=== PATIENT | female | born 1980 | race Caucasian/White ===

== ENCOUNTER 2021-05-20 12:26 | Observation (INO) ==
[2021-05-20] MEDS ORDERED: 0.9 % Sodium Chloride 1,000 ML IVC ONE (12:49)
[2021-05-20 13:44] LABS: Basophils % 0.3 %; Eosinophils % 0.1 %; Hematocrit 33.7 % (35.3-44.9); Hemoglobin 10.6 g/dL (11.5-15.4); Immature Granulocytes % 0.6 % (0-4); Lymphocytes # 2.4 K/mcL (0.6-4.6); Lymphocytes % 16.3 %; Mean Corpuscular HGB Conc 31.5 g/dL (31.6-35.5); Mean Corpuscular Hemoglobin 31.5 pg (28.0-33.3); Mean Corpuscular Volume 100.3 fL (83.0-100.0); Mean Platelet Volume 11.7 fL (9.4-12.4); Monocytes # 0.8 K/mcL (0.0-1.3); Monocytes % 5.2 %; Neutrophils # 11.6 K/mcL (1.6-8.9); Platelet Count 200 K/mcL (140-400); Red Blood Count 3.36 M/mcL (3.82-4.97); Red Cell Distribution Width 16.6 % (11.5-14.5); Segmented Neutrophils % 77.5 %
[2021-05-20 13:51] LABS: Bacteria,Urine Few per hpf (None-Few); Bilirubin,Urine Negative (Negative); Blood,Urine Trace (Negative); Budding Yeast,Urine Few per hpf (None Seen); Clarity,Urine Turbid (Clear); Color,Urine Yellow (Yellow); Glucose,Urine (UA) 200 mg/dL (Normal); Hyaline Casts,Urine Many per lpf (None Seen); Ketones,Urine Negative (Negative); Leukocyte Esterase,Urine Large (Negative); Mucus,Urine Few per lpf (None-Few); Nitrite,Urine Negative (Negative); Protein,Urine 30 mg/dL (Neg-Trace); Renal Epithelial Cells,Urine Few per hpf (None-Few); Specific Gravity,Urine 1.021 (1.010-1.025); Squamous Epithelial Cell,Urine Moderate per hpf (None-Few); Transitional Epi Cells,Urine Few per hpf (None-Few); Urobilinogen,Urine Normal (Normal); WBC,Urine TNTC per hpf (0-3)
[2021-05-20 13:53] LABS: INR 1.3
[2021-05-20 14:04] LABS: Alanine Aminotransferase 27 Units/L (7-52); Albumin 1.8 g/dL (3.5-5.7); Albumin/Globulin Ratio 0.8 (1.1-2.2); Alkaline Phosphatase 150 Units/L (34-104); Aspartate Amino Transferase 32 Units/L (13-39); BUN/Creatinine Ratio 10 (6-26); Bilirubin,Direct 0.3 mg/dL (0.0-0.2); Bilirubin,Indirect 0.4 mg/dL (0.0-1.0); Bilirubin,Total 0.7 mg/dL (0.3-1.0); Blood Urea Nitrogen 12 mg/dL (6-20); Carbon Dioxide 25 mEq/L (23-29); Chloride 104 mEq/L (98-107); Globulin 2.4 g/dL (2.4-3.5); Glucose 313 mg/dL (70-105); Lipase 6 Units/L (11-82); Osmolality,Calculated 292 (280-300); Potassium 5.4 mEq/L (3.5-5.1); Sodium 135 mEq/L (136-145); Total Protein 4.2 g/dL (6.4-8.9); Troponin I < 0.03 ng/mL (< 0.04); eGFR For African Americans > 60 (> 60); eGFR For Non-African Americans 51 (> 60)
[2021-05-20] MEDS ORDERED: Lactulose Oral Soln 20 GM/30 ML UDC PO ONE (14:28)
[2021-05-20] MEDS ORDERED: cefTRIAXone 1,000 MG in Water for inj. (sterile) 10 ML IVP ONE (16:22)
[2021-05-20] MEDS ORDERED: Naloxone 0.4 MG/ML INJ IVP PRN (16:26)
[2021-05-20] MEDS ORDERED: Albumin 25% 25gram/100mL 25 GM/100 ML IV.SOLN IVC SCH (16:45)
[2021-05-20] MEDS ORDERED: *HR* Dextrose 50 % in Water (Syg) 50 ML SYRINGE IVP PRN (17:15)
[2021-05-20] MEDS ORDERED: D5% in Water 1,000 ML IVC PRN (17:15)
[2021-05-20] MEDS ORDERED: Dextrose Gel 15 GM/37.5 ML TUBE PO PRN ×2 (17:15)
[2021-05-20] MEDS ORDERED: Acetaminophen 325 MG TABLET PO PRN (17:24)
[2021-05-20 17:25] LABS: Magnesium 1.2 mg/dL (1.6-2.6)
[2021-05-20] MEDS: Nicotine 14 MG PATCH.TD24 TD SCH (19:01)
[2021-05-20] MEDS: Ondansetron 4 MG/2 ML VIAL IVP PRN (19:10)
[2021-05-20 20:25] LABS: Amphetamine Screen,Urine Negative ng/mL (Cutoff=1000); Barbiturate Screen,Urine Negative ng/mL (Cutoff=200); Benzodiazepines Screen,Urine Negative ng/mL (Cutoff=200); Cannabinoid Screen,Urine Positive ng/mL (Cutoff = 50); Cocaine Screen,Urine Negative ng/mL (Cutoff= 300); Opiate Screen,Urine Positive ng/mL (Cutoff=300); Phencyclidine Screen,Urine Negative ng/mL (Cutoff=25)
[2021-05-20] MEDS ORDERED: Insulin LISPRO 300 UNITS/3 ML VIAL SUBQ SCH ×2 (21:00→22:49)
[2021-05-20 21:02] LABS: Hepatitis B Surface Antigen Nonreactive (Nonreactive)
[2021-05-20] MEDS: Spironolactone 25 MG TABLET PO SCH (21:17)
[2021-05-20] MEDS: Nystatin SUSP 5 ML UD.LIQ PO SCH (21:17)
[2021-05-20] MEDS: Mirtazapine 15 MG TABLET PO SCH (21:17)
[2021-05-20] MEDS: Lactulose Oral Soln 20 GM/30 ML UDC PO SCH (21:21)
[2021-05-20 21:48] LABS: Hepatitis B Core IgM Nonreactive (Nonreactive)
[2021-05-20 21:53] LABS: Hepatitis A Antibody IgM Nonreactive (Nonreactive)
[2021-05-20] MEDS: Insulin LISPRO 300 UNITS/3 ML VIAL SUBQ SCH (23:16)
[2021-05-20 23:25] LABS: Chlamydia Trachomatis DNA Ur NOT DETECTED (Not Detect)
[2021-05-21] MEDS: traZODone 50 MG TABLET PO PRN ×2 (01:52→20:18)
[2021-05-21 03:04] LABS: Basophils # 0.1 K/mcL (0.0-0.2); Basophils % 0.5 %; Eosinophils # 0.2 K/mcL (0.0-0.6); Eosinophils % 1.3 %; Hematocrit 29.1 % (35.3-44.9); Hemoglobin 9.1 g/dL (11.5-15.4); Immature Granulocytes % 0.4 % (0-4); Lymphocytes # 5.2 K/mcL (0.6-4.6); Lymphocytes % 42.9 %; Mean Corpuscular HGB Conc 31.3 g/dL (31.6-35.5); Mean Corpuscular Hemoglobin 31.3 pg (28.0-33.3); Mean Platelet Volume 11.5 fL (9.4-12.4); Monocytes # 0.9 K/mcL (0.0-1.3); Monocytes % 7.6 %; Neutrophils # 5.7 K/mcL (1.6-8.9); Platelet Count 186 K/mcL (140-400); Red Blood Count 2.91 M/mcL (3.82-4.97); Red Cell Distribution Width 16.4 % (11.5-14.5); Segmented Neutrophils % 47.3 %
[2021-05-21 03:13] LABS: INR 1.3; Prothrombin Time 14.6 Seconds (9.4-12.1)
[2021-05-21 03:26] LABS: Alanine Aminotransferase 23 Units/L (7-52); Albumin 1.6 g/dL (3.5-5.7); Albumin/Globulin Ratio 0.8 (1.1-2.2); Alkaline Phosphatase 130 Units/L (34-104); Aspartate Amino Transferase 20 Units/L (13-39); BUN/Creatinine Ratio 11 (6-26); Bilirubin,Total 0.5 mg/dL (0.3-1.0); Blood Urea Nitrogen 11 mg/dL (6-20); Calcium 6.7 mg/dL (8.6-10.3); Carbon Dioxide 21 mEq/L (23-29); Chloride 108 mEq/L (98-107); Chol/HDL Ratio 12.5 (0-4.9); Cholesterol 75 mg/dL (< 200); Glucose 104 mg/dL (70-105); HDL Cholesterol 6 mg/dL (40-59); Iron 81 mcg/dL (50-170); LDL Cholesterol,Calculated 43 mg/dL (< 100); Osmolality,Calculated 278 (280-300); Phosphorous 2.6 mg/dL (2.7-4.5); Potassium 4.4 mEq/L (3.5-5.1); Sodium 134 mEq/L (136-145); Total Protein 3.6 g/dL (6.4-8.9); Triglycerides 129 mg/dL (< 150); eGFR For African Americans > 60 (> 60); eGFR For Non-African Americans 59 (> 60)
[2021-05-21 03:42] LABS: Ferritin 239 ng/mL (10-120)
[2021-05-21 04:27] LABS: Hepatitis C Virus Antibody Reactive (Nonreactive)
[2021-05-21] MEDS: Ondansetron 4 MG/2 ML VIAL IVP PRN (04:50)
[2021-05-21] MEDS ORDERED: Insulin LISPRO 300 UNITS/3 ML VIAL SUBQ SCH ×2 (07:30→21:00)
[2021-05-21] MEDS: *HR* HYDROcodone/Acet 5/325 mg TABLET PO PRN ×2 (07:50→16:17)
[2021-05-21] MEDS: Multivit/Ca/Min/Fe/FA 1 TAB TABLET PO SCH (10:01)
[2021-05-21] MEDS: Nystatin SUSP 5 ML UD.LIQ PO SCH ×4 (10:01→20:17)
[2021-05-21] MEDS: Lactulose Oral Soln 20 GM/30 ML UDC PO SCH ×2 (10:01→20:17)
[2021-05-21] MEDS: Furosemide 40 MG TABLET PO SCH (10:02)
[2021-05-21] MEDS: Cyanocobalamin (B-12) 1,000 MCG TABLET PO SCH (10:02)
[2021-05-21] MEDS: Fluconazole 100 MG TABLET PO SCH (10:02)
[2021-05-21] MEDS: Folic Acid 1 MG TABLET PO SCH (10:02)
[2021-05-21] MEDS: Spironolactone 25 MG TABLET PO SCH ×2 (10:02→20:17)
[2021-05-21] MEDS: Thiamine (B-1) 100 MG TABLET PO SCH (10:02)
[2021-05-21] MEDS: Nicotine 14 MG PATCH.TD24 TD SCH (10:02)
[2021-05-21] MEDS: Linaclotide [Linzess] 290 MCG Capsule PO SCH (10:03)
[2021-05-21] MEDS ORDERED: Metoclopramide 10 MG/2 ML VIAL IVP ONE (10:18)
[2021-05-21] MEDS: Insulin LISPRO 300 UNITS/3 ML VIAL SUBQ SCH ×2 (12:16→17:39)
[2021-05-21 14:08] LABS: RBC,Peritoneal Fluid < 2000 RBC/mcL
[2021-05-21 14:14] LABS: Glucose,Peritoneal Fluid 210 mg/dL (No Ref Range); LDH,Peritoneal Fluid < 25 Units/L (No Ref Range); Total Protein,Peritoneal Fluid < 2.0 g/dL
[2021-05-21 15:39] LABS: Appearance of Peritoneal Fl CLEAR (Clear)
[2021-05-21] MEDS ORDERED: cefTRIAXone 1,000 MG in 0.9 % Sodium Chloride Mini Bag 100 ML IVPB SCH (16:00)
[2021-05-21] MEDS: Preparation H Ointment 57 GM TUBE TP SCH (17:38)
[2021-05-21] MEDS: Mirtazapine 15 MG TABLET PO SCH (20:18)
[2021-05-21] MEDS: *HR* Buprenorphine HCl 8 MG TAB.SUBL SL SCH (20:22)
[2021-05-21] MEDS ORDERED: Artificial Tears SOLN 15 ML BOTTLE BOTH EYES SCH (21:00)
[2021-05-21] MEDS ORDERED: NON-FORMULARY MEDICATION 1 EACH EACH (Buprenorphine Hcl/Naloxone Hcl [Suboxone 8 Mg-2 Mg S SL SCH (21:00)
[2021-05-22] MEDS ORDERED: Prochlorperazine 10 MG/2 ML VIAL IVP PRN (00:08)
[2021-05-22] MEDS: Preparation H Ointment 57 GM TUBE TP SCH ×3 (01:07→11:43)
[2021-05-22 05:04] LABS: Hematocrit 27.1 % (35.3-44.9); Mean Corpuscular HGB Conc 33.2 g/dL (31.6-35.5); Mean Corpuscular Hemoglobin 32.4 pg (28.0-33.3); Mean Corpuscular Volume 97.5 fL (83.0-100.0); Platelet Count 175 K/mcL (140-400); Red Blood Count 2.78 M/mcL (3.82-4.97); Red Cell Distribution Width 16.4 % (11.5-14.5); White Blood Count 8.9 K/mcL (4.3-11.1)
[2021-05-22 05:30] LABS: BUN/Creatinine Ratio 9 (6-26); Blood Urea Nitrogen 10 mg/dL (6-20); Calcium 6.9 mg/dL (8.6-10.3); Carbon Dioxide 24 mEq/L (23-29); Chloride 103 mEq/L (98-107); Glucose 156 mg/dL (70-105); Osmolality,Calculated 276 (280-300); Potassium 4.3 mEq/L (3.5-5.1); Sodium 132 mEq/L (136-145); eGFR For African Americans > 60 (> 60); eGFR For Non-African Americans 56 (> 60)
[2021-05-22] MEDS: Insulin LISPRO 300 UNITS/3 ML VIAL SUBQ SCH ×3 (08:32→17:11)
[2021-05-22] MEDS: Fluconazole 100 MG TABLET PO SCH (09:52)
[2021-05-22] MEDS: Nystatin SUSP 5 ML UD.LIQ PO SCH ×2 (09:52→13:36)
[2021-05-22] MEDS: Spironolactone 25 MG TABLET PO SCH (09:52)
[2021-05-22] MEDS: Nicotine 14 MG PATCH.TD24 TD SCH (09:52)
[2021-05-22] MEDS: Cyanocobalamin (B-12) 1,000 MCG TABLET PO SCH (09:53)
[2021-05-22] MEDS: *HR* Buprenorphine HCl 8 MG TAB.SUBL SL SCH (09:53)
[2021-05-22] MEDS: Thiamine (B-1) 100 MG TABLET PO SCH (09:53)
[2021-05-22] MEDS: Multivit/Ca/Min/Fe/FA 1 TAB TABLET PO SCH (09:53)
[2021-05-22] MEDS: Folic Acid 1 MG TABLET PO SCH (09:53)
[2021-05-22] MEDS: Furosemide 40 MG TABLET PO SCH (09:53)
[2021-05-22] MEDS: Lactulose Oral Soln 20 GM/30 ML UDC PO SCH (09:54)
[2021-05-22] MEDS: Linaclotide [Linzess] 290 MCG Capsule PO SCH (13:02)
[2021-05-22 15:50] VITALS: BP 112/78; PULSE 98; TEMP 98.9; O2SAT 99
[2021-05-23 11:16] LABS: Fluid Source for Albumin PERITONEAL
[2021-05-23 12:28] LABS: % Iron Saturation 92 % (15-50); Transferrin 63 mg/dL (200-400)
== END 2021-05-22 18:07 | disposition home health service (06) ==
LOC: 3ANU 12:26 → EMEROOARM 12:26 → SUATTDRO 16:38 → 3ANU 17:28
PROVIDERS: ADMIT Internal Medicine; ATTEND Internal Medicine